=== PATIENT | male | born 1975 | race Caucasian/White ===

== ENCOUNTER 2017-02-11 09:10 | Emergency (ER) | payer OTHER ==
[2017-02-11 09:29] VITALS: BP 151/81
--- NOTE | 2017-02-11 10:06 | UC ---
Lower Extremity/Ankle HPI - HPI Summary HPI Summary: Pain on top of foot at just in front of the ankle in L foot starting about a week ago. At first pain was radiating up into leg, now that has improved. Pain worsens through day, much worse with weight-bearing. For a couple days having similar pain in same spot on R foot. No prior sx or fx. Denies swelling, redness , injury, recent tick bite, or fever. Has been feeling shaky and off today, like when he doesn't eat for too long. 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 - History of Current Complaint Chief Complaint: UCLowerExtremity Stated Complaint: FOOT PAIN Time Seen by Provider: 02/11/17 09:47 Hx Obtained From: Patient Onset/Duration: Gradual Onset, Lasting Days Severity Initially: Mild Severity Currently: Moderate Aggravating Factor(s): Standing, Ambulation Alleviating Factor(s): Rest Able to Bear Weight: Yes - Risk Factors Gout Risk Factors: Age Over 40, Male - Allergies/Home Medications Allergies/Adverse Reactions: Allergies Allergy/AdvReac Type Severity Reaction Status Date / Time seasonal Allergy Congestion Uncoded 07/10/16 08:16 PMH/Surg Hx/FS Hx/Imm Hx Endocrine History Of: Denies: Diabetes, Thyroid Disease, Hyperthyroidism, Hypothyroidism, Dyslipidemia Cardiovascular History Of: Denies: Cardiac Disorders, Hypertension, Pacemaker/ICD, Myocardial Infarction , Congestive Heart Failure, Atrial Fibrillation, Deep Vein Thrombosis, Bleeding Disorders Respiratory History Of: Denies: COPD, Asthma, Bronchitis, Pneumonia, Pulmonary Embolism GI/ History Of: Reports: Gastroesophageal Reflux Denies: Ulcer, Gastrointestinal Bleed, Gall Bladder Disease, Kidney Stones, Diverticulitis, Renal Disease, Urosepsis Neurological History Of: Denies: TIA, CVA, Dementia, Seizures, Migraine Psychological History Of: Denies: Anxiety, Depression, Bipolar Disorder, Schizophrenia, Post Traumatic Stress Disorder Cancer History Of: Denies: Lung Cancer, Colorectal Cancer, Breast Cancer, Prostate Cancer, Cervical Cancer Other History Of: Negative For: HIV, Hepatitis B, Hepatitis C, Anticoagulant Therapy - Surgical History Surgical History: None - Family History Known Family History: Positive: Cardiac Disease, Hypertension Negative: Diabetes - Social History Occupation: Employed Full-time Alcohol Use: Weekly Alcohol Amount: 2 times a week Substance Use Type: Marijuana Substance Use Comment - Amount & Last Used: weekly Smoking Status (MU): Former Smoker Review of Systems Constitutional: Negative Skin: Negative Eyes: Negative ENT: Negative Respiratory: Negative Cardiovascular: Negative Gastrointestinal: Negative Genitourinary: Negative Motor: Negative Neurovascular: Negative Musculoskeletal: Arthralgia Neurological: Negative Psychological: Negative All Other Systems Reviewed And Are Negative: Yes Physical Exam Triage Information Reviewed: Yes Appearance: Well-Appearing, No Pain Distress, Well-Nourished Vital Signs: Initial Vital Signs Temp 98.3 F 02/11/17 09:17 Pulse 80 02/11/17 09:17 Resp 18 02/11/17 09:17 BP 151/81 02/11/17 09:17 Pulse Ox 100 02/11/17 09:17 Vital Signs Reviewed: Yes Eye Exam: Normal Eyes: Positive: Conjunctiva Clear ENT Exam: Normal ENT: Positive: Normal ENT inspection, Hearing grossly normal, Pharynx normal, TMs normal. Negative: Tonsillar swelling, Tonsillar exudate Dental Exam: Normal Neck exam: Normal Neck: Positive: Supple, Nontender, No Lymphadenopathy Respiratory Exam: Normal Respiratory: Positive: Chest non-tender, Lungs clear, Normal breath sounds, No respiratory distress, No accessory muscle use Cardiovascular Exam: Normal Cardiovascular: Positive: RRR, No Murmur Musculoskeletal Exam: Other - mildly tender over dorsal midfoot, no swelling or pt tenderness Musculoskeletal: Positive: Strength Intact, ROM Intact Neurological Exam: Normal Neurological: Positive: Alert Psychological Exam: Normal Skin Exam: Normal Lower Extremity Course/Dx - Differential Dx/Diagnosis Provider Diagnoses: overuse injury bilat feet Discharge - Discharge Plan Condition: Stable Disposition: HOME Patient Education Materials: Tendinitis (ED) Forms: *Work Release Referrals: Harriet Dalton PA [Primary Care Provider] - 4 Days Additional Instructions: OVERUSE SYNDROME: Overuse syndrome is inflammation caused by repeated activity. Many daily activities cause minor, microscopic injury to muscles, tendons, and ligaments. With adequate rest, the tissues repair themselves. But sometimes a repetitive movement or new activity is too much for the tissue to tolerate, and inflammation results. Examples of overuse syndrome are tendonitis, bursitis, muscle inflammation, and joint capsulitis. Rest. Stop or decrease the activity that created the problem. You may need a sling or splint. For the first couple of days after symptoms begin, ice packs can be helpful. When the symptoms start improving, you can switch to hot packs followed by stretching and motion of the painful area. Antiinflammatory medicine such as ibuprofen can help. Call or return if there is fever, increasing pain, spreading redness, numbness, weakness, or other significant change. You can continue to bear weight, but try to minimize it as much as possible for the next couple days while you are off work. If your symptoms are not improving with time and rest, you may need further testing and imaging. I recommend you find good insoles for your workboots that have arch support and shock absorption in the heels. Take ibuprofen 600mg 2-3 times per day for the next 5 days. Images Feet (Multiple View): 1 - area of pain 2 - area of pain 3 - visible well-demarcated swelling, no palpable mass
== END 2017-02-11 10:10 | disposition home or self-care (01) ==
LOC: UCEAST 09:10
DX: M70.872 Other soft tissue disorders related to use, overuse and pressure, left ankle and foot (principal); M70.871 Other soft tissue disorders related to use, overuse and pressure, right ankle and foot; Y93.9 Activity, unspecified; K21.9 Gastro-esophageal reflux disease without esophagitis; F12.90 Cannabis use, unspecified, uncomplicated; Z87.891 Personal history of nicotine dependence
CPT/HCPCS: 99211; G0463